=== PATIENT | male | born 1955 | race Caucasian/White ===

== ENCOUNTER 2021-02-07 16:24 | Emergency (ER) | payer OTHER ==
[2021-02-07 17:47] LABS: BASOPHIL 1.4 % (0-2); EOSINOPHIL 0.7 % (0-7); HCT 36.2 % (42.0-52.0); HGB 12.4 g/dl (13.2-18.0); LYMPHOCYTE 44.4 % (15-48); MCH 34.3 pg (25.0-31.0); MCHC 34.3 g/dL (32.0-36.0); MCV 100.3 fL (78.0-100.0); MONOCYTE 8.8 % (0-12); MPV 10.6 fL (6.0-9.5); NEUTROPHIL 44.5 % (41-80); NRBC 0; PLT 213 K/uL (150-400); RBC 3.61 M/uL (4.70-6.00); RDW 17.9 % (11.5-14.0); WBC 4.2 K/uL (4.0-10.5)
[2021-02-07 17:59] LABS: ALBUMIN 2.7 g/dL (3.4-5.0); BUN/CREAT RATIO (CALC) 37.6 RATIO; CREATININE 0.85 mg/dL (0.67-1.17); POTASSIUM 4.2 mmol/L (3.5-5.1); TOTAL PROTEIN 6.7 g/dL (6.4-8.2)
[2021-02-07 18:07] LABS: CKMB 3.5 ng/mL (0.0-3.6)
[2021-02-07 19:26] LABS: BILIRUBIN NEGATIVE (NEGATIVE); BLOOD NEGATIVE Ery/uL (NEGATIVE); CLARITY CLEAR (CLEAR); COLOR YELLOW (YELLOW); GLUCOSE (U) NORMAL (NORMAL); LEUKOCYTES NEGATIVE Leu/uL (NEGATIVE); NITRITE NEGATIVE (NEGATIVE); PROTEIN NEGATIVE (NEGATIVE); UROBILINOGEN 0.2 mg/dL (0.2-1.0); pH 5.5 (5.0-9.0)
[2021-02-07] MEDS ORDERED: IMODIUM2 MG PO (20:15)
[2021-02-07] MEDS ORDERED: BENTYL10 MG PO (20:15)
== END 2021-02-07 20:28 | disposition home or self-care (01) ==
LOC: FER 16:24
PROVIDERS: Nurse Practitioner
DX: K52.9 Noninfective gastroenteritis and colitis, unspecified (principal); R63.4 Abnormal weight loss; S00.211A Abrasion of right eyelid and periocular area, initial encounter; S50.312A Abrasion of left elbow, initial encounter; F17.210 Nicotine dependence, cigarettes, uncomplicated; Z98.890 Other specified postprocedural states; X58.XXXA Exposure to other specified factors, initial encounter
CPT/HCPCS: 36415; 71045; 80053; 81003; 82150; 82553; 83690; 84484; 85025; 93005; J7030; Q9967